=== PATIENT | male | born 1975 | race Hispanic/Latino ===

== ENCOUNTER 2021-07-30 07:25 | Emergency (ER) | payer OTHER, BC ==
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
[2021-07-30] MEDS ORDERED: MORPHINE 4 MG/ML SYR ONE (08:07)
[2021-07-30] MEDS ORDERED: ONDANSETRON 4 MG/2 ML VIAL ONE (08:07)
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
[2021-07-30 09:33] VITALS: BP 127/78; TEMP 97.9; O2SAT 97
== END 2021-07-30 09:19 | disposition home or self-care (01) ==
LOC: ER 07:25
DX: S13.4XXA Sprain of ligaments of cervical spine, initial encounter (principal); S83.402A Sprain of unspecified collateral ligament of left knee, initial encounter; V43.52XA Car driver injured in collision with other type car in traffic accident, initial encounter; Y93.89 Activity, other specified; Y92.410 Unspecified street and highway as the place of occurrence of the external cause
CPT/HCPCS: 72125; 96374; 96375; 99284; J2405